=== PATIENT | male | born 1960 ===

== ENCOUNTER → 2018-10-03 13:35 | Outpatient (REF) | payer OTHER, SELFPAY | LOC: LAB 13:35 | PROVIDERS: Visit Provider Physician Assistant | DX: Z48.817 Encounter for surgical aftercare following surgery on the skin and subcutaneous tissue (principal); L23.9 Allergic contact dermatitis, unspecified cause | CPT/HCPCS: 87070; 87075; 87077; 87147; 87186; 87205 ==